=== PATIENT | male | born 1950 | race African-American/Black ===

== ENCOUNTER 2020-12-06 15:23 | Emergency (ER) | payer OTHER ==
[2020-12-06 15:31] VITALS: BMI 28.3
[2020-12-06 17:33] VITALS: BP 171/86; PULSE 80; TEMP 98
== END 2020-12-06 17:59 | disposition home or self-care (01) ==
LOC: JER 15:23
DX: T17.208A Unspecified foreign body in pharynx causing other injury, initial encounter (principal)
CPT/HCPCS: 70360-TC-FY; 99283-25